=== PATIENT | female | born 1970 | race Caucasian/White ===

== ENCOUNTER → 2019-10-18 | Outpatient (CLI) | payer BC | LOC: CARD 13:03 | PROVIDERS: ATTEND Internal Medicine Cardiovascular Disease | DX: I10 Essential (primary) hypertension (principal); E78.2 Mixed hyperlipidemia; E66.01 Morbid (severe) obesity due to excess calories; Z72.0 Tobacco use | CPT/HCPCS: 93306 ==

== ENCOUNTER 2021-03-10 15:22 | Emergency (ER) | payer BC ==
[2021-03-10 15:30] VITALS: BP 184/118
[2021-03-10] MEDS ORDERED: AMOX500C2 PO ×2 (15:42→15:49)
--- NOTE | 2021-03-10 15:42 | ED Integumentary General ---
General Stated Complaint: INSECTS IN EAR History of Present Illness Date Seen by Provider: Mar 10, 2021 Time Seen by Provider: 15:35 Initial Comments 50-year-old female presents with concern for "insect" in her right ear. Patient reports she had what appeared to be some blood in drainage out of her right ear. Orts that she noticed this this morning. Patient also reports that she has [place]" [place] and is concerned about something coming out of her skin. Patient denies any fevers chills or other systemic complaints Allergies and Home Medications Allergies Coded Allergies: codeine (Verified Allergy, Unknown, hives, 03/10/21) Home Medications Amoxicillin 500 Mg Capsule, 500 MG PO TID Prescribed by: YEHUDA JESUS on 03/10/21 1708 Patient Home Medication List Home Medication List Reviewed: Yes Review of Systems Review of Systems Constitutional: No chills, No fever EENTM: see HPI Respiratory: no symptoms reported Cardiovascular: no symptoms reported Gastrointestinal: no symptoms reported Genitourinary: no symptoms reported Musculoskeletal: no symptoms reported Skin: see HPI Psychiatric/Neurological: No Symptoms Reported Endocrine: No Symptoms Reported Hematologic/Lymphatic: No Symptoms Reported Past Uwvefku-Odpmga-Tbnwsw Hx Past Med/Social Hx: Reviewed Nursing Past Med/Soc Hx Physical Exam Vital Signs Capillary Refill : General Appearance: other (Distress, very anxious) HEENT: other (Right TM is bulging with pus behind it, ear canal is clean with no signs of insect or other ab normality, normal left TM and canal) Neck: non-tender, full range of motion Cardiovascular: normal peripheral pulses, regular rate, rhythm Respiratory: lungs clear Gastrointestinal: non tender, soft Extremities: normal range of motion Neurologic/Psychiatric: alert Skin Problem Location: other (Mild occasional lesions that are very small that look consistent with likely insect bite versus very small pimple/acne. No acute findings.) Progress/Results/Core Measures Progress Progress Note : Progress Note Patient with no signs of acute abnormality. Patient is very distress distress and feels like she is seeing staff, her skin however there is nothing there. When I discussed with her that she has what appears to be some pus in her ear and ear infection she felt that that could not be it that had to be a bug. I will treat her with amoxicillin. I recommend she follows up with her primary care provider next week. She should also possibly consider some psychiatric he lp. Patient stable on discharge because she wants to get a second opinion at another facility. Departure Impression Primary Impression: Otitis media Qualified Codes: H66.001 - Acute suppurative otitis media without spontaneous rupture of ear drum, right ear Additional Impression: Insect bites and stings Qualified Codes: W57.XXXA - Bitten or stung by nonvenomous insect and other nonvenomous arthropods, initial encounter Disposition: HOME, SELF-CARE Condition: Stable Departure-Patient Inst. Referrals: ROSITA CARRION APRN (PCP/Family) Primary Care Physician Patient Instructions: Insect Bites and Stings, Ear Infection ED Add. Discharge Instructions: Follow-up with your primary care provider next week for recheck of your right ear Scripts Amoxicillin (Amoxicillin) 500 Mg Capsule 500 MG PO TID, #21 CAP 0 Refills Prov: YEHUDA JESUS DO 03/10/21 YEHUDA JESUS DO Mar 10, 2021 15:42
== END 2021-03-10 15:58 | disposition home or self-care (01) ==
LOC: EDUNIT# 15:22 → ER FS 15:24
DX: H66.41 Suppurative otitis media, unspecified, right ear (principal); S00.461A Insect bite (nonvenomous) of right ear, initial encounter; W57.XXXA Bitten or stung by nonvenomous insect and other nonvenomous arthropods, initial encounter
CPT/HCPCS: 99281